=== PATIENT | female | born 1995 | race Caucasian/White ===

== ENCOUNTER 2017-08-05 13:02 | Emergency (ER) | payer MEDICAID ==
[~2017-08-05] VITALS: Ht 157.5 cm; Wt 84.8 kg
[2017-08-05 14:33] VITALS: Ht 157.5 cm; Wt 84.8 kg
[2017-08-05 16:13] VITALS: BP 134/99
== END 2017-08-05 16:13 | disposition home or self-care (01) ==
LOC: ED 13:02
DX: G43.909 Migraine, unspecified, not intractable, without status migrainosus (principal); R55 Syncope and collapse
CPT/HCPCS: J1170; J1885; Q0162

== ENCOUNTER 2019-01-12 08:33 | Emergency (ER) | payer MEDICAID ==
[~2019-01-12] VITALS: Ht 157.5 cm; Wt 90.3 kg
[2019-01-12 08:37] VITALS: Ht 157.5 cm; Wt 90.3 kg
[2019-01-12 09:32] VITALS: BP 137/79
== END 2019-01-12 09:32 | disposition home or self-care (01) ==
LOC: ED 08:33
DX: H60.92 Unspecified otitis externa, left ear (principal); H70.92 Unspecified mastoiditis, left ear

== ENCOUNTER 2019-09-01 10:40 | Emergency (ER) | payer MEDICAID ==
[~2019-09-01] VITALS: Ht 157.5 cm; Wt 94.8 kg
[2019-09-01 11:26] VITALS: Ht 157.5 cm; Wt 94.8 kg
[2019-09-01 13:55] VITALS: BP 142/82
== END 2019-09-01 13:55 | disposition home or self-care (01) ==
LOC: ED 10:40
DX: J20.9 Acute bronchitis, unspecified (principal)
CPT/HCPCS: 87804